=== PATIENT | female | born 1995 | race Caucasian/White ===

== ENCOUNTER 2018-05-17 15:19 | Outpatient (CLI) | payer OTHER | END 2018-05-17 19:23 | disposition left against medical advice (07) | LOC: OBT 15:19 → L-D 15:24 → OBT 19:23 | DX: O60.03 Preterm labor without delivery, third trimester (principal); Z3A.40 40 weeks gestation of pregnancy; Z53.21 Procedure and treatment not carried out due to patient leaving prior to being seen by health care provider | CPT/HCPCS: 76815; 76818 ==

== ENCOUNTER 2018-05-18 11:27 | Inpatient (IN) | payer OTHER ==
[2018-05-18] MEDS ORDERED: IBUPROFEN 600 MG TAB PO (12:30)
[2018-05-18] MEDS ORDERED: METHYLERGONOVINE 0.2 MG INJ IM (12:30)
[2018-05-18] MEDS ORDERED: LIDOCAINE 1% (MPF) 30 ML INJ INJ (12:30)
[2018-05-18] MEDS ORDERED: CARBOPROST 250 MCG INJ IM (12:30)
[2018-05-18] MEDS ORDERED: MISOPROSTOL 200 MCG TAB PR (12:30)
[2018-05-18] MEDS ORDERED: OXYCODONE/ACETAMINOPHEN (5/325) TAB PO (12:30)
[2018-05-18] MEDS ORDERED: OXYTOCIN 30 UNITS/LR 500 ML IV ×2 (12:30→13:00)
[2018-05-18] MEDS ORDERED: MISOPROSTOL 50 MCG CAPSULE VAG (13:00)
[2018-05-18] MEDS: AMPICILLIN 2 GM/NS (PMX) 100 ML IV (14:05)
[2018-05-18] MEDS: LACTATED RINGER'S 1,000 ML IV ×3 (14:05→23:33)
[2018-05-18] MEDS: OXYTOCIN 30 UNITS/LR 500 ML IV (14:15)
[2018-05-18 14:24] LABS: ADD MAN DIFF? NO
[2018-05-18 14:26] LABS: WHITE BLOOD COUNT 9.8 10^3/ul (4.8-10.8)
[2018-05-18 14:26] LABS: BASOPHILS % 0.3 % (0.0-2.0); EOSINOPHILS # 0.1 10^3/ul (0.0-0.5); EOSINOPHILS % 0.6 % (0.0-7.0); HEMATOCRIT 30.1 % (37.0-47.0); HEMOGLOBIN 9.4 g/dl (12.0-16.0); LYMPHOCYTES # 1.5 10^3/ul (0.8-2.9); LYMPHOCYTES % 15.3 % (15.0-51.0); MEAN CORPUSCULAR HEMOGLOBIN 19.8 pg (29.0-33.0); MEAN CORPUSCULAR HGB CONC 31.2 g/dl (32.0-37.0); MEAN CORPUSCULAR VOLUME 63.5 fl (82.0-101.0); MEAN PLATELET VOLUME 10.9 fl (7.4-10.4); MONOCYTE # 0.5 10^3/ul (0.3-0.9); NEUTROPHIL # 7.6 10^3/ul (1.6-7.5); NEUTROPHILS % 78.3 % (39.0-77.0); PLATELET COUNT 293 10^3/UL (140-415); RED BLOOD COUNT 4.74 10^6/ul (4.20-5.40); RED CELL DISTRIBUTION WIDTH 15.3 % (11.5-14.5)
[2018-05-18 14:51] LABS: INR 0.84; PARTIAL THROMBOPLASTIN TIME 26.6 Sec (23.0-35.0); PROTIME 11.6 Sec (11.9-14.9); PT RATIO 0.9
[2018-05-18 15:13] LABS: HEPATITIS B SURFACE ANTIGEN NEGATIVE (NEGATIVE)
[2018-05-18] MEDS ORDERED: BUTORPHANOL 1 MG INJ IV (18:00)
[2018-05-18] MEDS ORDERED: BUTORPHANOL 2 MG INJ (18:01)
[2018-05-18] MEDS: BUTORPHANOL 2 MG INJ IV (18:03)
[2018-05-18] MEDS: AMPICILLIN 1 GM/NS (PMX) 50 ML IV ×2 (18:09→22:20)
[2018-05-18 19:45] LABS: RAPID PLASMA REAGIN NONREACTIVE (NR)
[2018-05-18] MEDS ORDERED: KETOROLAC 30 MG INJ IV (20:00)
[2018-05-18] MEDS ORDERED: NALOXONE (0.4 MG/ML) INJ IV (20:00)
[2018-05-18] MEDS ORDERED: DIPHENHYDRAMINE 50 MG INJ IV (20:00)
[2018-05-18] MEDS ORDERED: HYDROmorphONE 0.5 MG/0.5 ML SYG IV ×2 (20:00)
[2018-05-18] MEDS ORDERED: ZOLPIDEM 5 MG TAB PO (20:00)
[2018-05-18] MEDS: FENTAnyl 2MCG/ML-ROPIV 0.2% 100 ML BAG EPI (22:19)
[2018-05-19] MEDS: OXYTOCIN 30 UNITS/LR 500 ML IV ×2 (03:13→03:15)
[2018-05-19] MEDS: ONDANSETRON 4 MG INJ IV (04:10)
[2018-05-19] MEDS ORDERED: MISOPROSTOL 200 MCG TAB PR (05:00)
[2018-05-19] MEDS ORDERED: ZOLPIDEM 5 MG TAB PO (05:00)
[2018-05-19] MEDS ORDERED: CARBOPROST 250 MCG INJ IM (05:00)
[2018-05-19] MEDS ORDERED: OXYTOCIN 30 UNITS/LR 500 ML IV (05:00)
[2018-05-19] MEDS ORDERED: MAGNESIUM HYDROXIDE 30ML CUP PO (05:00)
[2018-05-19] MEDS ORDERED: ONDANSETRON 4 MG INJ IV (05:00)
[2018-05-19] MEDS ORDERED: DIBUCAINE 1% 30 GM OINT TOP (05:00)
[2018-05-19] MEDS ORDERED: NA PHOSPHATE/BIPHOS 133 ML ENEMA PR (05:00)
[2018-05-19] MEDS ORDERED: METHYLERGONOVINE 0.2 MG TAB PO (05:00)
[2018-05-19] MEDS ORDERED: METHYLERGONOVINE 0.2 MG INJ IM (05:00)
[2018-05-19] MEDS ORDERED: HYDROCODONE/APAP (5/325) TAB PO (05:00)
[2018-05-19] MEDS ORDERED: ACETAMINOPHEN 325 MG TAB PO ×2 (05:00)
[2018-05-19] MEDS ORDERED: DIPHENHYDRAMINE 25 MG CAP PO (05:00)
[2018-05-19] MEDS: BENZOCAINE 20% 56 ML SPRAY TOP (06:00)
[2018-05-19] MEDS: IBUPROFEN 600 MG TAB PO ×4 (06:00→23:41)
[2018-05-19] MEDS: LANOLIN HPA 1 PKT TOP (06:00)
[2018-05-19] MEDS: WITCH HAZEL/GLYCERIN PAD PR (06:00)
[2018-05-19] MEDS: LACTATED RINGER'S 1,000 ML IV* (06:01)
[2018-05-19] MEDS: SENNA/DOCUSATE NA (8.6MG/50MG) TAB PO ×2 (09:42→20:52)
[2018-05-20] MEDS: IBUPROFEN 600 MG TAB PO ×4 (05:56→23:41)
[2018-05-20 06:43] LABS: ADD MAN DIFF? NO
[2018-05-20 06:45] LABS: BASOPHILS % 0.3 % (0.0-2.0); EOSINOPHILS # 0.3 10^3/ul (0.0-0.5); EOSINOPHILS % 2.9 % (0.0-7.0); HEMATOCRIT 24.6 % (37.0-47.0); HEMOGLOBIN 7.6 g/dl (12.0-16.0); LYMPHOCYTES # 1.7 10^3/ul (0.8-2.9); LYMPHOCYTES % 15.1 % (15.0-51.0); MEAN CORPUSCULAR HEMOGLOBIN 20.2 pg (29.0-33.0); MEAN CORPUSCULAR HGB CONC 30.9 g/dl (32.0-37.0); MEAN CORPUSCULAR VOLUME 65.3 fl (82.0-101.0); MONOCYTE # 0.6 10^3/ul (0.3-0.9); NEUTROPHIL # 8.6 10^3/ul (1.6-7.5); NEUTROPHILS % 75.9 % (39.0-77.0); PLATELET COUNT 248 10^3/UL (140-415); RED BLOOD COUNT 3.77 10^6/ul (4.20-5.40); RED CELL DISTRIBUTION WIDTH 15.4 % (11.5-14.5)
[2018-05-20 06:45] LABS: WHITE BLOOD COUNT 11.3 10^3/ul (4.8-10.8)
[2018-05-20] MEDS: SENNA/DOCUSATE NA (8.6MG/50MG) TAB PO ×2 (10:13→21:48)
[2018-05-20] MEDS: BISACODYL 10 MG SUPP PR (17:00)
[2018-05-20] MEDS: MAGNESIUM HYDROXIDE 30ML CUP PO (17:00)
[2018-05-20] MEDS: FERROUS SULFATE (EC) 325 MG TAB PO (20:44)
[2018-05-20] MEDS: LANOLIN HPA 1 PKT TOP (23:41)
[2018-05-21] MEDS: IBUPROFEN 600 MG TAB PO ×2 (05:36→12:28)
[2018-05-21] MEDS: MEASLES,MUMPS,RUBELLA VACCINE INJ SC* (09:00)
[2018-05-21] MEDS: VARICELLA VACCINE LIVE/PF 1,350 UNIT/0.5 ML ML SC* (09:00)
[2018-05-21] MEDS: FERROUS SULFATE (EC) 325 MG TAB PO ×2 (09:21→12:28)
[2018-05-21] MEDS: SENNA/DOCUSATE NA (8.6MG/50MG) TAB PO (09:21)
[2018-05-21] MEDS: DIPHTH/TET/ACEL PERTUSS (ADULT) 0.5 ML VIAL IM* (12:30)
== END 2018-05-21 16:51 | disposition home or self-care (01) | DRG 807 ==
LOC: PP1 05-19 04:18 → L-D 11:27
PROVIDERS: Obstetrics & Gynecology
PROC: 10E0XZZ Delivery of Products of Conception, External Approach (ICD-10-PCS; principal; 2018-05-19)
PROC: 3E033VJ Introduction of Other Hormone into Peripheral Vein, Percutaneous Approach (ICD-10-PCS; 2018-05-19)
DX: O48.0 Post-term pregnancy (principal); Z37.0 Single live birth; O99.013 Anemia complicating pregnancy, third trimester; Z3A.40 40 weeks gestation of pregnancy
CPT/HCPCS: 62319; 85025; 85610; 85730; 86592; 86850; 86900; 86901; 87340; 90686; 90715; 90716